=== PATIENT | male | born 1990 | race American Indian/Alaskan Native ===

== ENCOUNTER 2024-01-04 10:04 | Emergency (ER) | payer BC, SELFPAY ==
[2024-01-04 10:24] VITALS: BP 99/74; PULSE 73; RESP 16; TEMP 36.6; O2SAT 100
[2024-01-04 10:27] VITALS: BP 99/74; PULSE 73; RESP 16; TEMP 36.6; O2SAT 100
--- NOTE | 2024-01-04 11:12 | ED.GENADULT ---
HPI - General Adult General Chief complaint: Epistaxis Stated complaint: Chest Congestion Time Seen by Provider: 01/04/24 10:58 Source: patient and RN notes reviewed Mode of arrival: ambulatory Limitations: no limitations History of Present Illness HPI narrative: Patient presents today complaining of a 2 episodes of epistaxis that occurred yesterday, 1 in the morning and 1 at night, each lasting approximately 1 minute before resolving. He is also complaining of mild cough that is keeping him awake at night. Last week he was on vacation in [place] when he started running a fever up to 104 with cough, body aches, chills, headache. He came home and was started on an antibiotic by his PCP. States most of his symptoms have fully resolved, but his cough has persisted. Denies shortness of breath. He has been taking ibuprofen. Related Data Allergies Allergy/AdvReac Type Severity Reaction Status Date / Time No Known Allergies Allergy Verified 01/04/24 10:27 Review of Systems Review of Systems: CONSTITUTIONAL: Denies body aches, fever, chills, or sweats. EYES: Denies visual changes, redness, or discharge. ENT: Denies rhinorrhea, congestion, sore throat, or otalgia.+ epistaxis CARDIOVASCULAR: Denies chest pain, palpitations, or edema. RESPIRATORY: Denies dyspnea.+ cough GASTROINTESTINAL: Denies abdominal pain, nausea, vomiting, or diarrhea. GENITOURINARY: Denies dysuria or hematuria. SKIN: Denies rash, itching, or wounds. MUSCULOSKELETAL: Denies back pain, joint pain, or myalgia. NEUROLOGIC: Denies headache, numbness, tingling, or weakness. PSYCH: Denies depression or anxiety. PMFSH Comments At time of signature, I have reviewed and agree with nursing past medical, surgical, social and family history unless otherwise noted. Please see nursing chart for further information. There is no relevant family history pertinent to the presenting complaint Exam Narrative: GENERAL: Well-appearing, well-nourished, and in no acute distress. HEAD: Normocephalic, atraumatic. EYES: EOMI. No redness or drainage. Conjunctivae normal. ENT: Mucous membranes pink and moist. Nares clear. Bilateral nasal turbinates appear normal. No rhinorrhea. NECK: Normal AROM. Supple. No lymphadenopathy. CHEST: No respiratory distress. Clear to auscultation. HEART: Regular rate and rhythm. No murmur appreciated. Normal peripheral pulses. EXTREMITIES: Normal range of motion. No edema. SKIN: Warm, dry, no rash. Capillary refill normal. Normal skin turgor. NEURO: No focal deficits. Alert and oriented x3. Gait steady. PSYCH: Normal affect. No signs of depression or anxiety. Course Course Level of Care: Express Care Visit Vital Signs Vital signs: Vital Signs Temperature 97.8 F 01/04/24 10:24 Pulse Rate 73 01/04/24 10:24 Respiratory Rate 16 01/04/24 10:24 Blood Pressure 99/74 L 01/04/24 10:24 Pulse Oximetry 100 01/04/24 10:24 Oxygen Delivery Room Air 01/04/24 10:24 Temperature 97.8 F 01/04/24 10:27 Pulse Rate 73 01/04/24 10:27 Respiratory Rate 16 01/04/24 10:27 Blood Pressure 99/74 L 01/04/24 10:27 Pulse Oximetry 100 01/04/24 10:27 Oxygen Delivery Room Air 01/04/24 10:27 Reviewed Medical Decision Making MDM Narrative Medical decision making narrative: Patient will be treated with a course of prednisone for his bronchitis. He you will also be given a nose clip in case his epistaxis returns. Discussed [id number] saline nasal spray and humidification at night may help his epistaxis. Anticipatory guidance given. Differential Diagnosis Differential Diagnosis: URI, bronchitis, pneumonia, epistaxis Vital Signs Vital Signs: Vital Signs Temperature 97.8 F 01/04/24 10:24 Pulse Rate 73 01/04/24 10:24 Respiratory Rate 16 01/04/24 10:24 Blood Pressure 99/74 L 01/04/24 10:24 Pulse Oximetry 100 01/04/24 10:24 Oxygen Delivery Room Air 01/04/24 10:24 Temperature
== END 2024-01-04 11:20 | disposition home or self-care (01) ==
PROVIDERS: Emergency Provider Nurse Practitioner
DX: R04.0 Epistaxis (principal); J40 Bronchitis, not specified as acute or chronic
CPT/HCPCS: 99213; G0463